=== PATIENT | male | born 1965 | race Caucasian/White ===

== ENCOUNTER → 2016-10-28 | Outpatient (CLI) | payer BC ==
--- NOTE | 2016-10-28 17:21 | CT ---
EXAMINATION TYPE: CT angio chest DATE OF EXAM: 10/28/2016 4:54 PM COMPARISON: NONE HISTORY: abnormal echo CT DLP: 1243.9 mGycm Automated exposure control for dose reduction was used. CONTRAST: CTA scan of the thorax is performed with IV Contrast, patient injected with 100 mL of Omnipaque 300, pulmonary embolism protocol. There are 3-D post processed images.. FINDINGS: The lungs are clear of infiltrate. There is no evidence of a pulmonary mass. There is no pleural effu [place]. There is no pericardial effusion. There is no evidence of aortic aneurysm or dissection. There is normal contrast opacification of the pulmonary arteries. I see no filling defect. There is no mediastinal adenopathy. There are no hilar m asses. Bony structures are intact. IMPRESSION: NEGATIVE CT ANGIOGRAM OF THE CHEST. NO EVIDENCE OF PULMONARY EMBOLISM. NO EVIDENCE OF AORTIC ANEURYSM. ASCENDING AORTA IS UPPER LIMIT OF NORMAL SIZE AND MEASURES 3.7 CM. D ESCENDING AORTA MEASURES 2.5 CM. NO EVIDENCE OF DISSECTION.
== END ==
LOC: RADCTMAIN 14:19
PROVIDERS: ATTEND Internal Medicine Interventional Cardiology
DX: Q23.1 Congenital insufficiency of aortic valve (principal)
CPT/HCPCS: 71275; Q9967

== ENCOUNTER → 2016-12-01 | Outpatient (CLI) | payer BC ==
[2016-12-01 17:12] LABS: CH 29.8; CHCM 34.2; HCT 41.5 % (39.0-53.0); HDW 2.75; HGB 14.2 gm/dL (13.0-17.5); MCHC 34.3 g/dL (31.0-37.0); MCV 87.5 fL (80.0-100.0); Mean Platelet Volume 7.3; RBC 4.74 m/uL (4.30-5.90); RDW 13.2 % (11.5-15.5); WBC 7.9 k/uL (3.8-10.6)
[2016-12-01 17:25] LABS: Anion Gap 11 mmol/L; Blood Urea Nitrogen 13 mg/dL (9-20); Calcium 9.6 mg/dL (8.4-10.2); Carbon Dioxide 22 mmol/L (22-30); Chloride 107 mmol/L (98-107); Glucose 82 mg/dL (74-99); Non-African American GFR(MDRD) >60 (>60 ml/min/1.73 sqM); Sodium 140 mmol/L (137-145)
== END | disposition home or self-care (01) ==
LOC: LABWHC1 16:44
PROVIDERS: ATTEND Internal Medicine Interventional Cardiology
DX: I25.10 Atherosclerotic heart disease of native coronary artery without angina pectoris (principal); I35.0 Nonrheumatic aortic (valve) stenosis
CPT/HCPCS: 36415; 80048; 85027